=== PATIENT | female | born 1970 | race Caucasian/White ===

== ENCOUNTER 2019-06-19 12:48 | Emergency (ER) | payer SELFPAY ==
[~2019-06-19] VITALS: Ht 175.3 cm; Wt 59.1 kg
[2019-06-19 12:53] VITALS: BP 134/100
--- NOTE | 2019-06-19 13:00 | NUR ---
pt ambulated into triage, smooth and steady gait, NAD, sitting in chair conversing with RN.
--- NOTE | 2019-06-19 13:30 | NUR ---
Patientr given discharge instructions and she has confirmed that she understands the instructions. Patient ambulatory with steady gait.
== END 2019-06-19 13:32 | disposition home or self-care (01) ==
LOC: ED 13:21
DX: B34.9 Viral infection, unspecified (principal); F17.210 Nicotine dependence, cigarettes, uncomplicated
CPT/HCPCS: 99282

== ENCOUNTER 2020-10-15 17:04 | Inpatient (IN) | payer SELFPAY ==
[~2020-10-15] VITALS: Ht 172.7 cm; Wt 60.2 kg
--- NOTE | 2020-10-15 17:31 | NUR ---
PATIENT WALKED BACK FROM TRIAGE WITH CHIEF C/O SOB X2-3 DAYS. PATIENT REPORTS HER COUGH IS PRODUCTIVE AND SOB HAS GOTTEN WORSE. DENIES N/V/D, NO SICK CONTACTS, PATITENT REPORTS FEELING "FOGGY." NADN, LOOSE COUGH NOTED AT TIME OF ASSESSMENT, CONNECTED TO MONITOR, O AT 83-87% ON RA, PLACED ON 2 LPM NC, O2 UP TO 94%, OTHER VSS, CALL LIGHT WITHIN REACH.
--- NOTE | 2020-10-15 18:44 | NUR ---
REPORT RECIEVED FROM RUDI DOVER
--- NOTE | 2020-10-15 18:44 | NUR ---
ERMD AT BEDSIDE FOR EVALUATION.
--- NOTE | 2020-10-15 18:51 | NUR ---
PT LAYING IN BED, A/OX4, ALL NEEDS IN REACH, CALL LIGHT IN REACH, NAD AT THIS TIME
[2020-10-15] MEDS ORDERED: SODIUM CHLORIDE FLUSH 10ML SYR IVF ONE (19:00)
[2020-10-15] MEDS ORDERED: AZITHROMYCIN 500 MG in SODIUM CHLORIDE 0.9% 250 ML IV ONE (19:00)
[2020-10-15] MEDS ORDERED: CEFTRIAXONE 1,000 MG in DEXTROSE 5% 50 ML IVPB ONE (19:00)
[2020-10-15] MEDS ORDERED: SODIUM CHLORIDE 0.9% 1,000ML IVBOLUS ONE (19:00)
[2020-10-15 19:10] LABS: BASOPHILS % (AUTO) 1 % (0-1); EOSINOPHILS % (AUTO) 26 % (1-7); LYMPHOCYTES % (AUTO) 10 % (22-44); MEAN CORPUSCULAR HEMOGLOBIN 29.8 pg (27.0-34.8); MEAN CORPUSCULAR HGB CONC 33.4 g/dL (32.4-35.8); MEAN PLATELET VOLUME 8.3 fL (7.4-10.4); MONOCYTES % (AUTO) 5 % (2-9); NEUTROPHILS % (AUTO) 58 % (42-75); PLATELET COUNT 294 x10^3/uL (130-400); RED BLOOD COUNT 4.01 x10^6/uL (3.82-5.3); RED CELL DISTRIBUTION WIDTH 13.6 % (9.6-15.2)
[2020-10-15 19:24] LABS: ALBUMIN 3.2 g/dL (3.4-5.0); ANION GAP 4 mmol/L (5-15); CALCIUM 9.3 mg/dL (8.5-10.1); CHLORIDE 103 mmol/L (98-107); CREATININE 0.89 mg/dL (0.55-1.02)
[2020-10-15] MEDS ORDERED: KETOROLAC 30 MG/1 ML IVPush STA (19:36)
[2020-10-15] MEDS ORDERED: KETOROLAC 30 MG/1 ML ONE (19:36)
[2020-10-15] MEDS ORDERED: ALBUTEROL/IPRATROPIUM 2.5MG/0.5MG, 3 ML ONE (19:39)
--- NOTE | 2020-10-15 19:55 | NUR ---
PT A/OX4, PT TAKEN OFF OF OXYGEN AND IS SATTING AT 95% ON ROOM AIR, THIS RN WILL CONTINUE TO MONITOR FOR DROPS IN OXYGEN, PT CURRENTLY NAD, DUONEB TREATMENT COMPLETED AND PT STATES SHE FEELS MUCH BETTER THAN WHEN SHE CAME IN
[2020-10-15] MEDS ORDERED: ALBUTEROL/IPRATROPIUM 2.5MG/0.5MG, 3 ML NPPB ONE (20:00)
--- NOTE | 2020-10-15 20:33 | NUR ---
PT LAYING IN BED, A/OX4, ALL NEEDS IN REACH, CALL LIGHT IN REACH, NAD A THIS TIME, PT HAS NO COMPLAINTS, PTS OXYGEN DROPPED TO 88% ON ROOM AIR SO THIS RN PUT PT BACK ONTO OXYGEN VIA NASAL CANULA AT 2LPM
--- NOTE | 2020-10-15 21:26 | NUR ---
PT LAYING IN BED, A/OX4, ALL NEEDS IN REACH, CALL LIGHT IN REACH, NAD AT THIS TIME, PT HAS NO COMPLAINTS
[2020-10-15] MEDS ORDERED: morphine SULFATE 10 MG/ML, 1ML IVPush PRN (22:00)
[2020-10-15] MEDS ORDERED: GUAIFENESIN/DM 200-20MG, 10ML UDC PO PRN (22:00)
[2020-10-15] MEDS ORDERED: OXYcodone IR 5MG TABLET PO PRN (22:00)
[2020-10-15] MEDS ORDERED: ACETAMINOPHEN 325 MG TABLET PO PRN (22:00)
[2020-10-15] MEDS ORDERED: ENALAPRILAT 1.25 MG/ML, 2ML IVPush PRN (22:00)
[2020-10-15] MEDS ORDERED: ZOLPIDEM 5MG TABLET PO PRN (22:00)
[2020-10-15] MEDS ORDERED: ONDANSETRON 2MG/ML, 2ML IVPush PRN (22:00)
[2020-10-15] MEDS ORDERED: DOCUSATE 100 MG CAPSULE PO PRN (22:00)
[2020-10-15 22:09] VITALS: BP 114/75
[2020-10-15] MEDS: METHOCARBAMOL 750 MG TABLET PO SCH (23:19)
[2020-10-15] MEDS: ENOXAPARIN 40 MG/0.4 ML SQ SCH (23:19)
[2020-10-16 00:59] VITALS: BP 107/62
[2020-10-16] MEDS: ALBUTEROL/IPRATROPIUM 2.5MG/0.5MG, 3 ML NPPB SCH ×4 (02:00→19:28)
[2020-10-16 05:46] LABS: BASOPHILS % (AUTO) 0 % (0-1); EOSINOPHILS % (AUTO) 0 % (1-7); LYMPHOCYTES % (AUTO) 7 % (22-44); MEAN CORPUSCULAR HEMOGLOBIN 30.5 pg (27.0-34.8); MEAN CORPUSCULAR HGB CONC 34.2 g/dL (32.4-35.8); MONOCYTES % (AUTO) 1 % (2-9); NEUTROPHILS % (AUTO) 92 % (42-75); PLATELET COUNT 260 x10^3/uL (130-400); RED CELL DISTRIBUTION WIDTH 13.3 % (9.6-15.2)
[2020-10-16 05:50] LABS: CHLORIDE 106 mmol/L (98-107)
[2020-10-16 05:54] LABS: ANION GAP 5 mmol/L (5-15); CALCIUM 8.7 mg/dL (8.5-10.1); CREATININE 0.75 mg/dL (0.55-1.02)
[2020-10-16 06:22] VITALS: BP 93/55
[2020-10-16] MEDS: METHOCARBAMOL 750 MG TABLET PO SCH ×3 (09:04→22:06)
[2020-10-16] MEDS: KETOROLAC 30 MG/1 ML IVPush SCH ×2 (13:09→18:52)
[2020-10-16 14:04] VITALS: BP 95/56
[2020-10-16] MEDS ORDERED: CEFTRIAXONE 2 GM in DEXTROSE 5% 50 ML IVPB SCH (17:00)
[2020-10-16] MEDS ORDERED: AZITHROMYCIN 500 MG in SODIUM CHLORIDE 0.9% 250 ML IV SCH (17:30)
[2020-10-16 18:38] VITALS: BP 100/61
[2020-10-16] MEDS: ENOXAPARIN 40 MG/0.4 ML SQ SCH (22:06)
[2020-10-17] MEDS: KETOROLAC 30 MG/1 ML IVPush SCH ×3 (01:16→14:34)
[2020-10-17 01:35] VITALS: BP 95/60
[2020-10-17] MEDS: ALBUTEROL/IPRATROPIUM 2.5MG/0.5MG, 3 ML NPPB SCH ×3 (02:00→14:45)
[2020-10-17 07:13] VITALS: BP 126/71
[2020-10-17] MEDS: METHOCARBAMOL 750 MG TABLET PO SCH (08:54)
[2020-10-17 13:46] VITALS: BP 105/62
[2020-10-17] MEDS ORDERED: GUAI12009 PO (14:27)
[2020-10-17] MEDS ORDERED: DOXY100T PO (14:27)
[2020-10-17] MEDS ORDERED: METH4TAB PO (14:27)
[2020-10-17] MEDS ORDERED: CEFD300C37 PO (14:27)
== END 2020-10-17 15:27 | disposition home or self-care (01) | DRG 189 ==
LOC: ED 20:47 → EDIP 21:16 → 4WST 22:00
PROVIDERS: ADMIT Internal Medicine; ATTEND Internal Medicine
DX: J96.01 Acute respiratory failure with hypoxia (principal); J44.1 Chronic obstructive pulmonary disease with (acute) exacerbation; F17.200 Nicotine dependence, unspecified, uncomplicated; Z82.5 Family history of asthma and other chronic lower respiratory diseases; Z88.2 Allergy status to sulfonamides; Z88.5 Allergy status to narcotic agent; Z88.8 Allergy status to other drugs, medicaments and biological substances; Z79.899 Other long term (current) drug therapy
CPT/HCPCS: 36415; 71045; 72110; 80048; 82040; 83605; 83735; 84100; 84145; 85025; 85379; 87040; 93005; 93970; 94640; 96365; 96375; G0378; J0456; J0696; J1650; J1885; J7030; J7050; J7512